=== PATIENT | male | born 2005 | race Two or more races ===

== ENCOUNTER 2024-04-16 20:33 | Emergency (ER) | payer MEDICAID, OTHER ==
[~2024-04-16] VITALS: Ht 165.1 cm; Wt 64.5 kg
[2024-04-16 20:46] VITALS: BP 132/80; PULSE 82; RESP 18; TEMP 98.2; O2SAT 98
== END 2024-04-16 22:49 | disposition home or self-care (01) ==
LOC: ER 20:33 → EDBD 20:33 → ER 22:49
DX: S50.312A Abrasion of left elbow, initial encounter (principal); S80.212A Abrasion, left knee, initial encounter; S40.212A Abrasion of left shoulder, initial encounter; M25.522 Pain in left elbow; M25.562 Pain in left knee; M25.512 Pain in left shoulder; V89.9XXA Person injured in unspecified vehicle accident, initial encounter; Y93.I9 Activity, other involving external motion; Y92.89 Other specified places as the place of occurrence of the external cause; Y99.8 Other external cause status
CPT/HCPCS: 71045; 73030; 73080; 73562